=== PATIENT | female | born 1960 ===

== ENCOUNTER 2018-06-18 19:30 | Emergency (ER) | payer MEDICAID ==
[2018-06-18 20:22] VITALS: BP 156/92
[2018-06-18] MEDS: Take Home: Acetaminophen/HYDROcodone 325-10 MG, 5 Tab Pack PO ONE (20:30)
[2018-06-18] MEDS: Take Home: Amoxicillin 875 MG Tab, 2 Tab Pack PO ONE (20:30)
--- NOTE | 2018-06-18 20:30 | EDM.PDOC ---
ED HPI GENERAL MEDICAL PROBLEM - General Chief Complaint: ENT Problem Stated Complaint: tooth pain Time Seen by Provider: 06/18/18 20:15 Source of Information: Reports: Patient History Limitations: Reports: No Limitations - History of Present Illness INITIAL COMMENTS - FREE TEXT/NARRATIVE: Patient reports tooth pain for the last week. No fever or chills. She has not been to the dentist. No other complaints. Reports tooth broke last week. Tooth pain to the lower left side. Onset: Gradual Quality: Reports: Ache, Sharp Severity: Moderate Worsens with: Reports: Eating Associated Symptoms: Reports: No Other Symptoms - Related Data Allergies Allergy/AdvReac Type Severity Reaction Status Date / Time penicillinase Allergy Rash Verified 06/18/18 20:16 Penicillins Allergy Rash Verified 06/18/18 20:16 Home Meds: Home Meds DULoxetine [Cymbalta] 20 mg PO DAILY 07/22/15 [History] Gabapentin [Neurontin] 100 mg PO DAILY 07/22/15 [History] Levothyroxine Sodium [Synthroid] 25 mcg PO ACBREAKFAST 07/22/15 [History] atorvaSTATin [Lipitor] 10 mg PO BEDTIME 07/22/15 [History] Past Medical History HEENT History: Reports: Other (See Below) Other HEENT History: glasses Cardiovascular History: Reports: High Cholesterol Respiratory History: Reports: Intubation, Previous, Other (See Below) Other Respiratory History: pneumonia Gastrointestinal History: Reports: Other (See Below) Other Gastrointestinal History: liver failure, ascites Genitourinary History: Reports: Other (See Below) Other Genitourinary History: UTI [employer] INSPECTOR History: Reports: Musculoskeletal History: Reports: Other (See Below) Other Musculoskeletal History: right clavicle broke Neurological History: Reports: Neuropathy, Peripheral Other Neuro History: Related to history of alcoholism Psychiatric History: Reports: Addiction, Depression Endocrine/Metabolic History: Reports: Hypothyroidism Dermatologic History: Reports: Eczema - Past Surgical History Female Surgical History: Reports: Tubal Ligation Social & Family History - Family History HEENT: Reports: Macular Degeneration Cardiac: Reports: High Cholesterol, Hypertension Respiratory: Reports: Asthma GI: Reports: Hiatal Hernia OBGYN: Reports: Other (See Below) Other OBGYN Family History: hysterectomy Musculoskeletal: Reports: Arthritis, RA Psychiatric: Reports: Bipolar, Depression Endocrine/Metabolic: Reports: Hypothyroidism Oncologic: Reports: Pancreatic ED ROS ENT - Review of Systems Review Of Systems: See Below Constitutional: Reports: No Symptoms HEENT: Reports: Dental Pain (left lower jaw) Respiratory: Reports: No Symptoms Cardiovascular: Reports: No Symptoms Endocrine: Reports: No Symptoms GI/Abdominal: Reports: No Symptoms : Reports: No Symptoms Musculoskeletal: Reports: No Symptoms Skin: Reports: No Symptoms Neurological: Reports: No Symptoms Psychiatric: Reports: No Symptoms Hematologic/Lymphatic: Reports: No Symptoms Immunologic: Reports: No Symptoms ED EXAM, ENT - Physical Exam Exam: See Below Exam Limited By: No Limitations General Appearance: Alert, WD/WN, Mild Distress Nose: Normal Inspection, Normal Mucousa, No Blood Mouth/Throat: Dental Abcess, Dental Pain, Other (left lower rear molar is broken with visible piece gone. Abscess to lower lateral jaw.). No: Normal Teeth Neck: Normal Inspection, Supple, Non-Tender, Full Range of Motion Respiratory/Chest: No Respiratory Distress, Lungs Clear, Normal Breath Sounds, No Accessory Muscle Use, Chest Non-Tender Cardiovascular: Normal Peripheral Pulses, Regular Rate, Rhythm, No Edema, No Gallop, No JVD, No Murmur, No Rub Extremities: Normal Inspection, Normal Range of Motion, Non-Tender, No Pedal Edema, Normal Capillary Refill Neurological: Alert, Oriented, CN II-XII Intact, Normal Cognition, Normal Gait, Normal Reflexes, No Motor/Sensory Deficits Psychiatric: Normal Affect, Normal Mood Course - Orders/Labs/Meds Orders: Active Orders 24 hr Category Date Time Status Acetaminophen/HYDROcodone [Take Home: Acetaminophen/ Med 06/18/18 20:20 Once HYDROcodone 325-10MG] 1 packet PO ONETIME ONE Amoxicillin [Take Home: Amoxicillin 875 MG Tab, 2 Tab Med 06/18/18 20:20 Once Pack] 1 packet PO ONETIME ONE Departure - Departure Time of Disposition: 20:36 Disposition: Home, Self-Care 01 Condition: Good Clinical Impression: Dental abscess - Discharge Information *PRESCRIPTION DRUG MONITORING PROGRAM REVIEWED*: No *COPY OF PRESCRIPTION DRUG MONITORING REPORT IN PATIENT CHRIS: No Instructions: Dental Abscess, [id number], Amoxicillin; Clavulanic Acid tablets, Probiotics Additional Instructions: Plan 1. Take Augmentin twice daily for 10 days. You may develop diarrhea. This is a normal side effect. Start eating yogurt 1-2 times daily to prevent a bacterial infection of the intestines caused by antibiotic use. 2. Follow up with a dentist once the infection is resolved. 3. Follow up with primary provider as needed for additional symptom management. 4. I also prescribed a small amount of a pain medication. Keep this in a safe place and do not give to anyone else. 5. Please call if you have any additional questions or concerns. - Problem List & Annotations (1) Dental abscess SNOMED Code(s): 645680408 Code(s): K04.7 - PERIAPICAL ABSCESS WITHOUT SINUS Status: Acute Priority : Low - Problem List Review Problem List Initiated/Reviewed/Updated: Yes - My Orders Last 24 Hours: My Active Orders 06/18/18 20:20 Acetaminophen/HYDROcodone [Take Home: Acetaminophen/HYDROcodone 325-10MG] 1 packet PO ONETIME ONE Amoxicillin [Take Home: Amoxicillin 875 MG Tab, 2 Tab Pack] 1 packet PO ONETIME ONE - Assessment/Plan Last 24 Hours: My Active Orders 06/18/18 20:20 Acetaminophen/HYDROcodone [Take Home: Acetaminophen/HYDROcodone 325-10MG] 1 packet PO ONETIME ONE Amoxicillin [Take Home: Amoxicillin 875 MG Tab, 2 Tab Pack] 1 packet PO ONETIME ONE Assessment:: tooth abscess Plan: Plan 1. Take Augmentin twice daily for 10 days. You may develop diarrhea. This is a normal side effect. Start eating yogurt 1-2 times daily to prevent a bacterial infection of the intestines caused by antibiotic use. 2. Follow up with a dentist once the infection is resolved. 3. Follow up with primary provider as needed for additional symptom management. 4. I also prescribed a small amount of a pain medication. Keep this in a safe place and do not give to anyone else. 5. Please call if you have any additional questions or concerns.
== END 2018-06-18 20:35 | disposition home or self-care (01) ==
LOC: VM.ED 19:30
DX: K04.7 Periapical abscess without sinus (principal); Z88.0 Allergy status to penicillin; Z79.899 Other long term (current) drug therapy
CPT/HCPCS: 99282; A9270